=== PATIENT | female | born 1995 | race Caucasian/White ===

== ENCOUNTER 2017-03-21 18:50 | Emergency (ER) | payer MEDICAID | END 2017-03-21 20:11 | disposition home or self-care (01) | LOC: E/R 20:11 | DX: S16.1XXA Strain of muscle, fascia and tendon at neck level, initial encounter (principal); V89.2XXA Person injured in unspecified motor-vehicle accident, traffic, initial encounter | CPT/HCPCS: 99283; Z7502 ==